=== PATIENT | female | born 1940 | race Caucasian/White ===

== ENCOUNTER → 2017-03-25 | Outpatient (CLI) | payer MEDICARE, OTHER ==
[2017-03-25 07:13] LABS: BASO # 0.1 K/mm3 (0.0-0.2); BASO % 1.1 % (0.0-1.0); EOS # 0.9 K/mm3 (0.0-0.50); EOS % 15.3 % (0.0-3.0); LARGE UNSTAINED CELL # 0.2 K/mm3 (0.0-0.4); LARGE UNSTAINED CELL % 4.3 % (0.0-4.0); LYMPH % 31.2 % (24.0-44.0); MEAN CORPUSCULAR HEMOGLOBIN 33.4 pg (27.0-33.0); MEAN CORPUSCULAR HGB CONC 33.8 g/dl (32.0-36.5); MEAN CORPUSCULAR VOLUME 98.7 fl (80.0-96.0); MONO # 0.5 K/mm3 (0.0-0.8); MONO % 8.1 % (0.0-5.0); NEUTROPHILS # 2.3 K/mm3 (1.8-7.7); PLATELET COUNT, AUTOMATED 238 k/mm3 (150-450); RED CELL DISTRIBUTION WIDTH 12.2 % (11.5-14.5); WHITE BLOOD COUNT 5.7 K/mm3 (4.0-10.0)
[2017-03-25 07:43] LABS: ALBUMIN 3.5 GM/DL (3.2-5.2); ALBUMIN/GLOBULIN RATIO 1.17 (1.00-1.93); ALKALINE PHOSPHATASE 62 U/L (45-117); ALT/SGPT 20 U/L (12-78); ANION GAP 8 MEQ/L (8-16); AST/SGOT 22 U/L (15-37); BILIRUBIN,TOTAL 0.4 MG/DL (0.2-1.0); BLOOD UREA NITROGEN 9 MG/DL (7-18); CALCIUM LEVEL 8.7 MG/DL (8.8-10.2); CARBON DIOXIDE LEVEL 31 MEQ/L (21-32); CHLORIDE LEVEL 97 MEQ/L (98-107); CHOLESTEROL LEVEL 195 MG/DL (<200); FREE T4 0.86 NG/DL (0.76-1.46); GLOMERULAR FILTRATION RATE > 60.0 (>39); GLUCOSE, FASTING 93 MG/DL (83-110); POTASSIUM SERUM 4.2 MEQ/L (3.5-5.1); SODIUM LEVEL 136 MEQ/L (136-145); TOTAL PROTEIN 6.5 GM/DL (6.4-8.2); TRIGLYCERIDES LEVEL 132 MG/DL (<150)
== END ==
LOC: M LAB 06:02
PROVIDERS: ATTEND Family Medicine
DX: E06.3 Autoimmune thyroiditis (principal); R03.0 Elevated blood-pressure reading, without diagnosis of hypertension

== ENCOUNTER → 2017-04-29 | Outpatient (CLI) | payer MEDICARE, OTHER ==
--- NOTE | 2017-04-29 11:05 | REPMRS ---
Patient History The patient states she has not had a clinical breast exam in over a year. No known family history of cancer. Took estrogen for 6 years. Digital Woman Screen Mammo: April 29, 2017 - Exam #: [id number] Bilateral CC and MLO view(s) were taken. Technologist: Kenya Orozco, Technologist Prior study comparison: January 24, 2015, bilateral digital mammo screening bilat, performed at [facility]. September 01, 2012, left breast digital mammo diagnostic unilateral, performed at [facility]. August 22, 2012, bilateral digital mammo screening bilat, performed at [facility]. FINDINGS: The breast tissue is extremely dense which could obscure a lesion on mammography. There is an extremely dense symmetrical pattern of residual fibroglandular tissue. There has been no change in the appearance of the mammogram from the previous studies. There is no interval development of dominant mass, archetectural distortion, or microcalcific cluster suggestive of malignancy. ASSESSMENT: BI-RADS/ACR category 2 mammogram. Benign finding(s). Recommendation Routine screening mammogram of both breasts in 1 year (for women over age 40). This mammogram was interpreted with the aid of an FDA-approved computer-aided dectection system. Electronically Signed By: Gregory Calzada MD 04/29/17 [id number]
--- NOTE | 2017-04-30 13:30 | DEXA ---
AP SPINE L1 - L4 0.820 -3.0 -1.3 LT FEMUR TOTAL 0.618 -3.1 -1.4 RT FEMUR TOTAL 0.594 -3.3 -1.6 TOTAL BODY TOTAL OTHER DUAL FEMUR FRAX* ASSESSMENT Risk factors: Mother's hip fracture, chronic glucocorticoids use. 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 The density of the spine has decreased 18.9% since the initial exam on 1998. The spine density has decreased 11.4% since the most recent exam on 02/11/2012. The density of the left hip has decreased 11.3% since the initial exam on 1998. The density of the left hip has decreased 8.0% since the most recent exam on . The density of the right hip has decreased 13.9% since the initial exam on 09/11. The density of the right hip has decreased 9.5% since the most recent exam on . FOLLOW-UP: Recommendation for the next bone density exam: 2 years. SHERRI
== END ==
LOC: M WHC 09:29
PROVIDERS: ATTEND Family Medicine
DX: Z12.31 Encounter for screening mammogram for malignant neoplasm of breast (principal); M94.9 Disorder of cartilage, unspecified; M89.9 Disorder of bone, unspecified
CPT/HCPCS: 77080; G0202

== ENCOUNTER → 2017-05-10 | Outpatient (CLI) | payer MEDICARE, OTHER ==
[2017-05-10 12:53] LABS: FREE T4 1.03 NG/DL (0.76-1.46)
== END ==
LOC: M LAB 11:35
PROVIDERS: ATTEND Family Medicine
DX: E06.3 Autoimmune thyroiditis (principal)

== ENCOUNTER → 2017-05-31 | Outpatient (CLI) | payer MEDICARE, OTHER ==
[~2017-05-31] MED LIST: ALBU83IN INH; BUDE2SUS3 IN; CALC600T31 PO; CLON0.5T PO; FLUO10CA8 PO; LEVO88TA3 PO; MONT10TA2 PO; OMEP40CA2 PO; PROAAER10 INH; RANI15TA PO; SPIR1CAP INH; VITA100067 PO; VITA500T3 PO
--- NOTE | 2017-05-31 13:30 | REP ---
Chest two views HISTORY: Corneal l dystrophy Comparison: 08/23/2014 The lungs are hyperinflated. The lungs are clear. The cardiac silhouette is enlarged. The pulmonary vasculature is normal in appearance. The bony structure is intact. IMPRESSION: Cardiomegaly Signed by Juan Diego Butcher MD 05/31/2017 01:22 P
[2017-05-31 14:15] LABS: ANION GAP 6 MEQ/L (8-16); BLOOD UREA NITROGEN 10 MG/DL (7-18); CALCIUM LEVEL 8.8 MG/DL (8.8-10.2); CARBON DIOXIDE LEVEL 32 MEQ/L (21-32); CHLORIDE LEVEL 92 MEQ/L (98-107); CREATININE FOR GFR 0.54 MG/DL (0.55-1.02); GLOMERULAR FILTRATION RATE > 60.0 (>39); GLUCOSE, FASTING 95 MG/DL (83-110); POTASSIUM SERUM 4.2 MEQ/L (3.5-5.1); SODIUM LEVEL 130 MEQ/L (136-145)
--- NOTE | 2017-05-31 15:05 | ECGEPIP ---
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 Electronically Signed On 05-31-2017 15:04:44 EDT by Kiko Goodson
== END ==
LOC: M LAB 12:46
PROVIDERS: ATTEND Ophthalmology
DX: H18.51 Endothelial corneal dystrophy (principal)

== ENCOUNTER → 2017-07-28 | Outpatient (CLI) | payer MEDICARE, OTHER ==
[2017-07-28 09:03] LABS: CALCIUM LEVEL 9.3 MG/DL (8.8-10.2)
== END ==
LOC: M LAB 08:16
PROVIDERS: ATTEND Internal Medicine Endocrinology, Diabetes & Metabolism
DX: M81.0 Age-related osteoporosis without current pathological fracture (principal)

== ENCOUNTER 2017-07-29 11:05 | Day surgery (SDC) | payer MEDICARE, OTHER ==
[~2017-07-29] VITALS: Ht 162.6 cm; Wt 45.4 kg
[~2017-07-29 11:05] MED LIST changes: +BALANCED SALT IRRIGATION SOLUTION 500ML BAG (FOR OR EYE MACHINE) As Ordered ONE; +BUPIVACAINE HCL 0.25% 30 ML VIAL As Ordered ONE; +HEALON DUET (HEALON 10MG/ML 0.55ML & HEALON ENDOCOAT 30MG/ML 0.85ML) As Ordered ONE; +LIDOCAINE 1% SDV 5 ML VIAL SQ ONE; +LIDOCAINE 2% MDV 20 ML VIAL As Ordered ONE; +LR 1,000 ML IV ONE; +MAXITROL OPHTH SUSP 5 ML As Ordered ONE; +OFLOXACIN 0.3 % (OCUFLOX) OPTH SOL 5ML OD ONE; +PHENYLEPHRINE 2.5% OPHTH SOL 2ML OD ONE; +POVIDONE-IODINE 5% OPHTH PREP SOL 30ML As Ordered ONE; +PROPARACAINE 0.5% OPHTH SOL 15ML OD ONE; +TROPICAMIDE 1% OPHTH SOLN 2ML OD ONE
[2017-07-29] MEDS ORDERED: DUOVISC (0.50ML VISCOAT/0.55ML PROVISC) OPHTH KIT As Ordered ONE (11:30)
[2017-07-29] MEDS ORDERED: ACETYLCHOLINE OPHTH SOLN 1% 2ML (MIOCHOL-E) As Ordered ONE (11:32)
[2017-07-29] MEDS ORDERED: OFLOXACIN 0.3 % (OCUFLOX) OPTH SOL 5ML As Ordered ONE (11:33)
[2017-07-29] MEDS ORDERED: TRYPAN BLUE 0.06 % 2.25 ML OPHTH SYR (VISIONBLUE) As Ordered ONE (11:41)
[2017-07-29] MEDS ORDERED: MIDAZOLAM INJ 2 MG/2 ML VIAL (J2250) As Ordered ONE (12:03)
[2017-07-29] MEDS ORDERED: fentaNYL 100 MCG/2 ML INJECTION (J3010) As Ordered ONE (12:03)
[2017-07-29] MEDS ORDERED: ONDANSETRON 4MG/2ML VIAL (J2405) As Ordered ONE (12:08)
[2017-07-29] MEDS ORDERED: ACETAMINOPHEN 325 MG TAB As Ordered ONE (15:18)
[2017-07-29 15:25] VITALS: BP 160/82
[2017-07-29] MEDS ORDERED: ACETAMINOPHEN TAB 650MG DOSE (2X325MG) PO PRN (15:30)
[2017-07-29] MEDS ORDERED: LR 1,000 ML IV SCH (15:30)
[2017-07-29] MEDS ORDERED: ONDANSETRON 4MG/2ML VIAL (J2405) IV PRN (15:30)
--- NOTE | 2017-07-30 12:46 | RO ---
DATE OF PROCEDURE: PREOPERATIVE DIAGNOSES: 1. Corneal edema, right eye. 2. Fuch's endothelial dystrophy, right eye. 3. Pseudophakia, right eye. POSTOPERATIVE DIAGNOSES: 1. Corneal edema, right eye. 2. Fuchs's endothelial dystrophy, right eye. 3. Pseudophakia, right eye. PROCEDURE: 1. Descemet membrane endothelial keratoplasty, right eye (patient 8.0 mm/donor 7.5 mm with the use of SF6 gas, 20% to the right eye). SURGEON: Abrahan Tam D.O. [employer]: ANESTHESIA: Local with monitored anesthesia care (MAC). COMPLICATIONS: None. POSTOPERATIVE CONDITION: Stable. INDICATION FOR SURGERY: Blurred vision, right eye affecting patient's activities of daily living. DESCRIPTION OF PROCEDURE: The patient was identified in the preoperative area and the consents were reviewed. The correct eye was identified and marked. Attention was turned to that eye. The patient received topical anesthetics in the preoperative area and the patient was transferred to the operating room. Prior to the patient being brought to the operating room, attention was turned to the donor cornea. The cornea was placed in a 7.5 mm Aguilar donor punch, and the "S" was visualized. Trypan blue was placed in the donor well and left for approximately 30 seconds then gently washed with balance salt solution (BSS). The donor punch was aligned so that the S was visualized within the area to be punched. A gentle punch was applied to the donor cornea just so that Descemet's membrane was penetrated and then the sharp punch was discarded. Using bent forceps, the endothelium was gently released from the stromal attachments until the tissue folded into a "double scroll". The double-scroll tissue was then placed in a well of trypan blue for approximately 3-4 minutes. The unused tissue was removed and sent to pathology and microbiology. At that time, the patient was reidentified and topical anesthetics were applied to the surface of the right eye. The eye was prepped and draped in a sterile fashion and the upper eyelids were isolated with Tegaderm tape and the upper and lower lids were held open with an adjustable speculum. An 8.0 mm trephine lala was placed on the corneal surface and using a marking pen, this ring was marked. An 0.6 mm blade was marked with ink and then two paracentesis incisions were made. One at approximately 4 o'clock and one at 8 o'clock. Intraocular Miochol was injected into the anterior chamber through a paracentesis wound showing a moderately small pupil. At that time, cohesive viscoelastic was placed in the eye. With a reverse Sinskey hook, the endothelium was detached following the 8.0 mm trephine lala placed on the corneal surface. A 2.4 mm sharp keratome was used to enter the anterior chamber via a temporal clear corneal incision, and then enlarged to 3.0mm. The detached endothelial tissue was removed from the eye using capsulorrhexis forceps. A Sinskey hook was used to confirm the opening of a preplaced laser peripheral iridectomy in the inferior iris and it was found to be open at that time. The trypan blue was placed in the anterior chamber to identify any further Descemet's host to Descemet's membrane and there were some and this was removed appropriately. Gentle irrigation and aspiration was performed removing all viscoelastic and attention was turned to the double scrolled endothelium. Trypan blue was gently diluted with Optisol solution that was covering the tissue, and then addition BSS was used to dilute the trypan blue solution over the double scrolled endothelium. The modified Santoro tube was assembled at the back table with a 3 mL syringe filled with BSS and a 1.4 cm 14 gauge nasogastric tube suction was cut to approximately 1.4 cm and assembled in a standard fashion. The modified Santoro tube was used to aspirate the double scrolled endothelium pulling the tissue into and then set aside. Attention was turned back to the patient. The chamber was shallowed. The tissue inside the modified Santoro tube was slowly injected into the anterior chamber, gentle pressure was applied to the incision upon withdrawal of the angiocatheter, and the incision was then closed with a single #10-0 nylon suture. Using two 27 gauge intraocular cannulas on 3 mL BSS syringes, the graft was gently tapped until the double scroll unfolded. Air and 1 mL SF6 was prepared at the back table for approximate concentration of 20% and then placed under the donor button to pus the button against the recipient corneal stroma, showing the "S" in proper position and orientation. Then SF6 gas (20%) was placed further through the paracentesis incision filling the anterior chamber and was left without manipulation for approximately 10 minutes. The intraocular pressure was normal to palpation after 10 minutes and a mild amount of SF6 gas was removed showing an SF6 bubble to approximately 75%. Paracentesis wound incisions were hydrated with BSS and tested for leaks and were found to be dry. ReSure sealant was then placed over the temporal incision as well as the inferior corneal incision and the eye was palpated and found to have a normal pressure with a moderate air bubble. Tissue was centrally placed and well positioned. The eyelid speculum was carefully removed and an eye shield was placed over the secured eye. The patient was discharged to the recovery room in a stable condition with instruction to lay supine for approximately one hour and then to be discharged home. SHERRI
== END 2017-07-29 16:10 | disposition home or self-care (01) ==
LOC: M SDC 11:05
PROVIDERS: ATTEND Ophthalmology
DX: H18.51 Endothelial corneal dystrophy (principal); H18.20 Unspecified corneal edema; Z96.1 Presence of intraocular lens; E03.9 Hypothyroidism, unspecified; K21.9 Gastro-esophageal reflux disease without esophagitis; M19.90 Unspecified osteoarthritis, unspecified site; M81.0 Age-related osteoporosis without current pathological fracture; F41.9 Anxiety disorder, unspecified; J44.9 Chronic obstructive pulmonary disease, unspecified; J45.909 Unspecified asthma, uncomplicated; I73.00 Raynaud's syndrome without gangrene; M35.00 Sjogren syndrome, unspecified; K22.70 Barrett's esophagus without dysplasia; Z88.6 Allergy status to analgesic agent; Z79.899 Other long term (current) drug therapy; Z87.891 Personal history of nicotine dependence
CPT/HCPCS: 65756; 65757; 66761; 67515; 87102; 88300; J2250; J2405; J3010

== ENCOUNTER → 2017-10-18 | Outpatient (REF) | payer MEDICARE, OTHER ==
[~2017-10-18] MED LIST changes: -BALANCED SALT IRRIGATION SOLUTION 500ML BAG (FOR OR EYE MACHINE) As Ordered ONE; -BUPIVACAINE HCL 0.25% 30 ML VIAL As Ordered ONE; -HEALON DUET (HEALON 10MG/ML 0.55ML & HEALON ENDOCOAT 30MG/ML 0.85ML) As Ordered ONE; -LIDOCAINE 1% SDV 5 ML VIAL SQ ONE; -LIDOCAINE 2% MDV 20 ML VIAL As Ordered ONE; -LR 1,000 ML IV ONE; -MAXITROL OPHTH SUSP 5 ML As Ordered ONE; -OFLOXACIN 0.3 % (OCUFLOX) OPTH SOL 5ML OD ONE; -PHENYLEPHRINE 2.5% OPHTH SOL 2ML OD ONE; -POVIDONE-IODINE 5% OPHTH PREP SOL 30ML As Ordered ONE; -PROPARACAINE 0.5% OPHTH SOL 15ML OD ONE; -TROPICAMIDE 1% OPHTH SOLN 2ML OD ONE
== END ==
LOC: M LAB REF 17:44
PROVIDERS: ATTEND Physician Assistant
DX: J44.1 Chronic obstructive pulmonary disease with (acute) exacerbation (principal)

== ENCOUNTER → 2017-10-18 | Outpatient (CLI) | payer MEDICARE, OTHER ==
--- NOTE | 2017-10-18 14:24 | REP ---
Chest two views HISTORY: COPD Comparison: 05/31/2017 The lungs are hyperinflated. The lungs are clear. The cardiac silhouette is enlarged. The pulmonary vasculature is normal in appearance. The bony structure is intact. IMPRESSION: Cardiomegaly. Signed by Juan Diego Butcher MD 10/18/2017 02:15 P
== END ==
LOC: M SMT 13:36
PROVIDERS: ATTEND Physician Assistant
DX: J44.1 Chronic obstructive pulmonary disease with (acute) exacerbation (principal); I51.7 Cardiomegaly

== ENCOUNTER 2018-04-14 10:12 | Day surgery (SDC) | payer MEDICARE, OTHER ==
[2018-04-14] MEDS: TRYPAN BLUE 0.06 % 2.25 ML OPHTH SYR (VISIONBLUE) As Ordered (06:42)
[2018-04-14] MEDS: OFLOXACIN 0.3 % (OCUFLOX) OPTH SOL 5ML As Ordered (06:43)
[2018-04-14] MEDS: LIDOCAINE 2% MDV 20 ML VIAL As Ordered (10:11)
[~2018-04-14 10:12] MED LIST changes: +ACETAMINOPHEN 325 MG TAB PO; -ALBU83IN INH; -BUDE2SUS3 IN; -CALC600T31 PO; -CLON0.5T PO; -FLUO10CA8 PO; -LEVO88TA3 PO; -MONT10TA2 PO; +OFLOXACIN 0.3 % (OCUFLOX) OPTH SOL 5ML OD; -OMEP40CA2 PO; -PROAAER10 INH; +PROPARACAINE 0.5% OPHTH SOL 15ML OD; -RANI15TA PO; -SPIR1CAP INH; -VITA100067 PO; -VITA500T3 PO
[2018-04-14] MEDS ORDERED: MIDAZOLAM INJ 2 MG/2 ML VIAL (J2250) As Ordered (11:04)
[2018-04-14] MEDS ORDERED: fentaNYL 100 MCG/2 ML INJECTION (J3010) As Ordered (11:04)
[2018-04-14] MEDS: PROPARACAINE 0.5% OPHTH SOL 15ML OD (11:18)
[2018-04-14] MEDS: OFLOXACIN 0.3 % (OCUFLOX) OPTH SOL 5ML OD (11:18)
[2018-04-14] MEDS: LIDOCAINE PRES-FREE 2% 10ML AMP As Ordered (11:45)
[2018-04-14] MEDS: BALANCED SALT IRRIGATION SOLUTION 500ML BAG (FOR OR EYE MACHINE) As Ordered (12:10)
[2018-04-14] MEDS: POVIDONE-IODINE 5% OPHTH PREP SOL 30ML As Ordered ×2 (12:10→13:37)
[2018-04-14] MEDS: DUOVISC (0.50ML VISCOAT/0.55ML PROVISC) OPHTH KIT As Ordered (12:10)
[2018-04-14] MEDS ORDERED: LABETALOL HCL 100 MG/20 ML VIAL As Ordered (12:14)
[2018-04-14] MEDS ORDERED: PROPOFOL 200 MG/20 ML VIAL As Ordered (12:36)
[2018-04-14] MEDS ORDERED: ePHEDrine SULFATE 25 MG/5 ML(5MG/ML) SYRINGE As Ordered (13:06)
[2018-04-14] MEDS ORDERED: ROCURONIUM BROMIDE 50 MG/5 ML VIAL As Ordered (13:06)
[2018-04-14] MEDS ORDERED: NEOSTIGMINE 10 MG/10 ML VIAL (J2710) As Ordered (13:14)
[2018-04-14] MEDS ORDERED: GLYCOPYRROLATE INJ 0.2 MG/ML 2 ML VIAL As Ordered (13:15)
[2018-04-14] MEDS ORDERED: ONDANSETRON 4MG/2ML VIAL (J2405) As Ordered ×2 (13:17→16:31)
[2018-04-14] MEDS ORDERED: PHENYLephrine HCL 500 MCG/5 ML (100MCG/ML) SYRINGE (J2370) As Ordered (13:23)
[2018-04-14] MEDS: TOBRADEX OPHTH OINT 3.5 GM As Ordered (13:37)
[2018-04-14] MEDS: ACETYLCHOLINE OPHTH SOLN 1% 2ML (MIOCHOL-E) As Ordered (13:38)
[2018-04-14] MEDS ORDERED: FLUMAZENIL 0.5 MG/5 ML VIAL As Ordered (14:14)
[2018-04-14] MEDS: FLUMAZENIL 0.5 MG/5 ML VIAL IV (14:22)
[2018-04-14] MEDS ORDERED: LEVALBUTEROL 1.25 MG/0.5 ML CONCENTRATE NEB As Ordered (14:23)
[2018-04-14] MEDS: LEVALBUTEROL 1.25 MG/0.5 ML CONCENTRATE NEB INH (14:35)
[2018-04-14] MEDS ORDERED: TRIMETHOBENZAMIDE 300 MG CAP PO (14:45)
[2018-04-14] MEDS ORDERED: ONDANSETRON 4MG/2ML VIAL (J2405) IV ×2 (15:00→18:00)
[2018-04-14] MEDS: ALBUTEROL 90 MCG/ACT 8GM HFA INHALER INH (16:05)
[2018-04-14] MEDS: ONDANSETRON 4MG/2ML VIAL (J2405) IV (16:45)
[2018-04-14] MEDS ORDERED: ALBUTEROL SULFATE 2.5 MG/0.5 ML INH NEB SOLN INH (18:00)
[2018-04-14] MEDS: NS 500 ML IV (18:13)
[2018-04-14] MEDS: ALBUTEROL SULFATE 2.5 MG/0.5 ML INH NEB SOLN INH (23:21)
[2018-04-15] MEDS: LEVOTHYROXINE 88MCG TABLET (0.088 MG) PO (06:28)
[2018-04-15] MEDS: TIOTROPIUM INHALER/CAPSULE (SPIRIVA) INH (07:55)
[2018-04-15] MEDS: ALBUTEROL SULFATE 2.5 MG/0.5 ML INH NEB SOLN INH ×4 (07:55→19:41)
[2018-04-15 08:27] LABS: HEMATOCRIT 37.9 % (36.0-47.0); HEMOGLOBIN 12.5 g/dl (12.0-15.5); MEAN CORPUSCULAR HEMOGLOBIN 33.1 pg (27.0-33.0); MEAN CORPUSCULAR VOLUME 100.3 fl (80.0-96.0); PLATELET COUNT, AUTOMATED 255 10^3/uL (150-450); RED BLOOD COUNT 3.78 10^6/uL (4.00-5.40); RED CELL DISTRIBUTION WIDTH 12.2 % (11.5-14.5); WHITE BLOOD COUNT 5.8 10^3/uL (4.0-10.0)
[2018-04-15] MEDS ORDERED: raNITIdine SYRUP 150 MG/10 ML UDC PO (09:00)
[2018-04-15] MEDS: predniSONE 5 MG TAB PO (09:03)
[2018-04-15] MEDS: PANTOPRAZOLE 40MG TAB (PROTONIX) PO (09:03)
[2018-04-15] MEDS: FEXOFENADINE 60 MG TAB PO (09:03)
[2018-04-15] MEDS: MONTELUKAST 10 MG TAB PO (09:04)
[2018-04-15] MEDS: FLUoxetine 10 MG CAP PO (09:04)
[2018-04-15 09:15] LABS: ANION GAP 6 MEQ/L (8-16); BLOOD UREA NITROGEN 14 MG/DL (7-18); CALCIUM LEVEL 8.4 MG/DL (8.8-10.2); CARBON DIOXIDE LEVEL 32 MEQ/L (21-32); CHLORIDE LEVEL 101 MEQ/L (98-107); CREATININE FOR GFR 0.63 MG/DL (0.55-1.30); GLOMERULAR FILTRATION RATE > 60.0 (>39); GLUCOSE, FASTING 76 MG/DL (70-100); SODIUM LEVEL 139 MEQ/L (136-145)
[2018-04-15] MEDS: OFLOXACIN 0.3 % (OCUFLOX) OPTH SOL 5ML OD ×3 (14:16→21:00)
[2018-04-15] MEDS: prednisoLONE ACET 1% OPHTH SUSP 5ML OD ×3 (15:30→21:00)
[2018-04-15] MEDS: BUDESONIDE 180MCG INHALER (PULMICORT FLEXHALER) INH (19:41)
[2018-04-15] MEDS: raNITIdine SYRUP 150 MG/10 ML UDC PO (21:00)
[2018-04-16] MEDS: LEVOTHYROXINE 88MCG TABLET (0.088 MG) PO (06:17)
[2018-04-16] MEDS: prednisoLONE ACET 1% OPHTH SUSP 5ML OD ×2 (06:17→09:00)
[2018-04-16] MEDS: ALBUTEROL SULFATE 2.5 MG/0.5 ML INH NEB SOLN INH (08:55)
[2018-04-16] MEDS: TIOTROPIUM INHALER/CAPSULE (SPIRIVA) INH (08:55)
== END 2018-04-16 10:47 | disposition home or self-care (01) ==
LOC: M SDC 10:12 → M PED 17:57
DX: T86.841 Corneal transplant failure (principal); K21.9 Gastro-esophageal reflux disease without esophagitis; I10 Essential (primary) hypertension; E03.9 Hypothyroidism, unspecified; J44.9 Chronic obstructive pulmonary disease, unspecified; H18.40 Unspecified corneal degeneration; F41.9 Anxiety disorder, unspecified; Z79.899 Other long term (current) drug therapy
CPT/HCPCS: 65756

== ENCOUNTER → 2018-08-29 | Outpatient (CLI) | payer MEDICARE, OTHER ==
[2018-08-29 14:11] LABS: CALCIUM LEVEL 8.6 MG/DL (8.8-10.2)
[2018-08-29 14:26] LABS: TOTAL 25(OH) VITAMIN D 66.5 NG/ML (30.0-100.0)
== END ==
LOC: M LAB 13:10
DX: M81.0 Age-related osteoporosis without current pathological fracture (principal); E55.9 Vitamin D deficiency, unspecified
CPT/HCPCS: 82310

== ENCOUNTER → 2018-09-28 | Outpatient (REF) | payer MEDICARE, OTHER ==
[2018-09-28 13:49] LABS: APPEARANCE, URINE HAZY (CLEAR); BACTERIA, URINE AUTO 3+ (NEGATIVE); BILIRUBIN, URINE AUTO NEGATIVE (NEGATIVE); BLOOD, URINE BLOOD NEGATIVE (NEGATIVE); COLOR, URINE YELLOW (YELLOW); GLUCOSE, URINE (UA) AUTO NEGATIVE (NEGATIVE); KETONE, URINE AUTO NEGATIVE (NEGATIVE); LEUKOCYTE ESTERASE, URINE AUTO 3+ (NEGATIVE); NITRITE, URINE AUTO POSITIVE (NEGATIVE); PROTEIN, URINE AUTO NEGATIVE (NEGATIVE); RBC, URINE AUTO 3 /HPF (0-3); SPECIFIC GRAVITY URINE AUTO 1.009 (1.002-1.035); SQUAMOUS EPITHELIAL CELL UR AU 0 /HPF (0-6); UROBILINOGEN, URINE AUTO 0.2 mg/dL (0.0-2.0); WBC, URINE AUTO 100 /HPF (0-3)
== END ==
LOC: M LAB REF 13:31
DX: N32.81 Overactive bladder (principal); Z79.899 Other long term (current) drug therapy
CPT/HCPCS: 81001

== ENCOUNTER → 2018-11-02 | Outpatient (REF) | payer MEDICARE, OTHER | LOC: M LAB REF 13:12 | DX: R30.0 Dysuria (principal) | CPT/HCPCS: 87086 ==

== ENCOUNTER → 2019-03-04 | Outpatient (CLI) | payer MEDICARE, OTHER ==
[~2019-03-04] MED LIST changes: -ACETAMINOPHEN 325 MG TAB PO; +ALBU83IN INH; +ALLE180T33 PO; +BUDE2SUS3 INH; +CALC600T31 PO; +CLON0.5T8 PO; +FLUO10CA8 PO; +LEVO88TA3 PO; +MONT10TA2 PO; -OFLOXACIN 0.3 % (OCUFLOX) OPTH SOL 5ML OD; +OMEP40CA2 PO; +PRED1SUS2 OD; +PROAAER10 INH; -PROPARACAINE 0.5% OPHTH SOL 15ML OD; +RANI15TA PO; +SPIR1CAP INH; +VITA100067 PO; +VITA500T3 PO
== END ==
LOC: M LAB 08:22
PROVIDERS: ATTEND Internal Medicine Endocrinology, Diabetes & Metabolism
DX: M81.0 Age-related osteoporosis without current pathological fracture (principal)

== ENCOUNTER 2019-05-23 18:23 | Emergency (ER) | payer MEDICARE, OTHER ==
[~2019-05-23] VITALS: Ht 162.6 cm; Wt 44.1 kg
[~2019-05-23 18:23] MED LIST changes: +CYAN500T8 PO; -VITA500T3 PO
[2019-05-23] MEDS ORDERED: AMLO2.5T3 PO (18:30)
[2019-05-23] MEDS ORDERED: ASPI81TA85 PO (18:30)
[2019-05-23] MEDS ORDERED: ADACEL/BOOSTRIX VACCINE (DIPHTH/PERTUSS/ACELL/TETANUS)0.5ML SYR (90715) IM ONE (20:30)
[2019-05-23 21:03] VITALS: BP 127/83
== END 2019-05-23 21:04 | disposition home or self-care (01) ==
LOC: M ED 20:40
DX: S61.303A Unspecified open wound of left middle finger with damage to nail, initial encounter (principal); W26.8XXA Contact with other sharp object(s), not elsewhere classified, initial encounter; Y92.018 Other place in single-family (private) house as the place of occurrence of the external cause; I10 Essential (primary) hypertension; J45.909 Unspecified asthma, uncomplicated; K21.9 Gastro-esophageal reflux disease without esophagitis; M81.0 Age-related osteoporosis without current pathological fracture; F41.9 Anxiety disorder, unspecified; Z79.899 Other long term (current) drug therapy; Z79.890 Hormone replacement therapy; Z79.82 Long term (current) use of aspirin; Z88.5 Allergy status to narcotic agent; Z88.8 Allergy status to other drugs, medicaments and biological substances

== ENCOUNTER → 2019-09-02 | Outpatient (CLI) | payer MEDICARE, OTHER ==
[~2019-09-02] MED LIST changes: +AMLO2.5T3 PO; +ASPI81TA85 PO; -OMEP40CA2 PO; +OMEP40CA97 PO
[2019-09-02 11:53] LABS: CALCIUM LEVEL 8.8 MG/DL (8.8-10.2)
[2019-09-04 10:40] LABS: TOTAL 25(OH) VITAMIN D 54.5 NG/ML (30.0-100.0)
== END ==
LOC: M LAB 11:12
PROVIDERS: ATTEND Internal Medicine Endocrinology, Diabetes & Metabolism
DX: M81.0 Age-related osteoporosis without current pathological fracture (principal); E55.9 Vitamin D deficiency, unspecified

== ENCOUNTER → 2019-10-23 | Outpatient (CLI) | payer MEDICARE, OTHER ==
[~2019-10-23] MED LIST changes: +CLON0.5T2 PO; -CLON0.5T8 PO
--- NOTE | 2019-10-26 10:21 | DEXA ---
AP SPINE L1 - L4 0.944 -2.0 -0.2 LT FEMUR TOTAL 0.639 -2.9 -1.0 LT NECK 0.613 -3.1 -1.0 RT FEMUR TOTAL 0.636 -3.0 -1.1 RT NECK 0.598 -3.2 -1.1 TOTAL BODY TOTAL OTHER COMMENTS: There is low bone density of the spine. There is osteoporosis of the hips. The increased density of the spine does represent a significant change. The increased density of the left hip does represent a significant change. The increased density of the right hip does represent a significant change. The density of the spine has decreased 6.6% since the initial exam on 09/11/1999. The spine density has increased 15.1% since the most recent exam on 04/29/2017. The density of the left hip has decreased 8.3% since the initial exam on 09/11/1999. The density of the left hip has increased 3.4% since the most recent exam on 04/29/2017. The density of the right hip has decreased 7.8% since the initial exam on 07/20/2005. The density of the right hip has increased 7.1% since the most recent exam on 04/29/2017. FOLLOW-UP: Recommendation for the next bone density exam: 2 years. SHERRI
== END ==
LOC: M WHC 09:23
PROVIDERS: ATTEND Internal Medicine Endocrinology, Diabetes & Metabolism
DX: M85.88 Other specified disorders of bone density and structure, other site (principal); M85.851 Other specified disorders of bone density and structure, right thigh; M85.852 Other specified disorders of bone density and structure, left thigh

== ENCOUNTER → 2020-08-26 | Outpatient (CLI) | payer MEDICARE, OTHER ==
[~2020-08-26] MED LIST changes: -ASPI81TA85 PO; +ASPI81TA86 PO; +FLUO10CA16 PO; -FLUO10CA8 PO; -MONT10TA2 PO; +MONT10TA4 PO
[2020-08-26 06:42] LABS: BASO % 0.4 % (0.0-1.0); EOS % 0.6 % (0.0-3.0); HEMATOCRIT 33.9 % (36.0-47.0); LYMPH # 2.3 10^3/uL (1.5-5.0); LYMPH % 31.4 % (24.0-44.0); MEAN CORPUSCULAR HEMOGLOBIN 31.7 pg (27.0-33.0); MEAN CORPUSCULAR HGB CONC 32.4 g/dl (32.0-36.5); MEAN CORPUSCULAR VOLUME 97.7 fl (80.0-96.0); MONO # 0.9 10^3/uL (0.0-0.8); MONO % 12.5 % (0.0-5.0); PLATELET COUNT, AUTOMATED 254 10^3/uL (150-450); RED BLOOD COUNT 3.47 10^6/uL (4.00-5.40); WHITE BLOOD COUNT 7.2 10^3/uL (4.0-10.0)
[2020-08-26 07:17] LABS: ALBUMIN 3.6 GM/DL (3.2-5.2); ALT/SGPT 19 U/L (12-78); BILIRUBIN,TOTAL 0.3 MG/DL (0.2-1.0); BLOOD UREA NITROGEN 13 MG/DL (7-18); CALCIUM LEVEL 9.1 MG/DL (8.8-10.2); CARBON DIOXIDE LEVEL 32 MEQ/L (21-32); CHLORIDE LEVEL 98 MEQ/L (98-107); CHOLESTEROL LEVEL 203 MG/DL (<200); CREATININE FOR GFR 0.58 MG/DL (0.55-1.30); FREE T4 1.05 NG/DL (0.76-1.46); GLOMERULAR FILTRATION RATE > 60.0 (>39); GLUCOSE, FASTING 87 MG/DL (70-100); HDL CHOLESTEROL 118 MG/DL (>40); LDL CHOLESTEROL 77 MG/DL (<100); NON-HDL-C 85 MG/DL; POTASSIUM SERUM 4.1 MEQ/L (3.5-5.1); SODIUM LEVEL 134 MEQ/L (136-145); THYROID STIMULATING HORMONE 0.233 uIU/ML (0.358-3.740); TOTAL PROTEIN 6.7 GM/DL (6.4-8.2); TRIGLYCERIDES LEVEL 40 MG/DL (<150)
== END ==
LOC: M LAB 06:04
PROVIDERS: ATTEND Nurse Practitioner Family
DX: Z00.00 Encounter for general adult medical examination without abnormal findings (principal); Z79.899 Other long term (current) drug therapy

== ENCOUNTER → 2021-05-24 | Outpatient (CLI) | payer MEDICARE, OTHER ==
[~2021-05-24] MED LIST changes: +CYAN500T14 PO; -CYAN500T8 PO; +MONT10TA10 PO; -MONT10TA4 PO; +OMEP40CA4 PO; -OMEP40CA97 PO
[2021-05-24 10:10] LABS: BLOOD UREA NITROGEN 11 MG/DL (7-18); CALCIUM LEVEL 9.2 MG/DL (8.8-10.2); CARBON DIOXIDE LEVEL 31 MEQ/L (21-32); CHLORIDE LEVEL 98 MEQ/L (98-107); CREATININE FOR GFR 0.59 MG/DL (0.55-1.30); FREE T4 1.05 NG/DL (0.76-1.46); GLOMERULAR FILTRATION RATE > 60.0 (>39); GLUCOSE, FASTING 78 MG/DL (70-100); SODIUM LEVEL 134 MEQ/L (136-145); THYROID STIMULATING HORMONE 0.792 uIU/ML (0.358-3.740)
== END ==
LOC: M LAB 08:51
PROVIDERS: ATTEND Nurse Practitioner Family
DX: E03.9 Hypothyroidism, unspecified (principal)

== ENCOUNTER → 2021-11-13 | Outpatient (CLI) | payer MEDICARE, OTHER ==
[2021-11-13 07:43] LABS: ALBUMIN 3.7 GM/DL (3.2-5.2); ALT/SGPT 22 U/L (12-78); BILIRUBIN,TOTAL 0.3 MG/DL (0.2-1.0); BLOOD UREA NITROGEN 17 MG/DL (7-18); CARBON DIOXIDE LEVEL 33 MEQ/L (21-32); CHLORIDE LEVEL 97 MEQ/L (98-107); CHOLESTEROL LEVEL 182 MG/DL (<200); CHOLESTEROL RISK RATIO 1.654 (<5); CREATININE FOR GFR 0.53 MG/DL (0.55-1.30); FREE T4 1.17 NG/DL (0.76-1.46); GLOMERULAR FILTRATION RATE > 60.0 (>39); GLUCOSE, FASTING 94 MG/DL (70-100); HDL CHOLESTEROL 110 MG/DL (>40); LDL CHOLESTEROL 65 MG/DL (<100); NON-HDL-C 72 MG/DL; POTASSIUM SERUM 4.6 MEQ/L (3.5-5.1); SODIUM LEVEL 132 MEQ/L (136-145); THYROID STIMULATING HORMONE 0.222 uIU/ML (0.358-3.740); TRIGLYCERIDES LEVEL 37 MG/DL (<150)
== END ==
LOC: M LAB 06:13
PROVIDERS: ATTEND Nurse Practitioner Family
DX: E03.9 Hypothyroidism, unspecified (principal)

== ENCOUNTER → 2022-01-19 | Outpatient (CLI) | payer MEDICARE, OTHER ==
[~2022-01-19] MED LIST changes: -FLUO10CA16 PO; +FLUO10CA18 PO; -MONT10TA10 PO; +MONT10TA97 PO
[2022-01-19 11:22] LABS: FREE T4 0.82 NG/DL (0.76-1.46); THYROID STIMULATING HORMONE 4.6 uIU/ML (0.358-3.740)
== END ==
LOC: M LAB 09:41
PROVIDERS: ATTEND Family Medicine
DX: E03.9 Hypothyroidism, unspecified (principal)

== ENCOUNTER → 2022-04-23 | Outpatient (REF) | payer MEDICARE, OTHER ==
[~2022-04-23] MED LIST changes: +ALBU2.5V10 INH; -ALBU83IN INH
== END ==
LOC: M LAB REF 17:24
PROVIDERS: ATTEND Physician Assistant
DX: J44.1 Chronic obstructive pulmonary disease with (acute) exacerbation (principal)

== ENCOUNTER → 2022-06-04 | Outpatient (CLI) | payer MEDICARE, OTHER | LOC: M SOG 07:59 | PROVIDERS: ATTEND Orthopaedic Surgery Hand Surgery | DX: M25.531 Pain in right wrist (principal) ==

== ENCOUNTER → 2022-09-28 | Outpatient (CLI) | payer MEDICARE, OTHER ==
[2022-09-28 07:16] LABS: BASO # 0.1 10^3/uL (0.0-0.2); BASO % 1.9 % (0.0-1.0); EOS # 1.2 10^3/uL (0.0-0.5); HEMATOCRIT 36.5 % (36.0-47.0); HEMOGLOBIN 11.9 g/dl (12.0-15.5); LYMPH # 1.4 10^3/uL (1.5-5.0); MEAN CORPUSCULAR HEMOGLOBIN 32.6 pg (27.0-33.0); MEAN CORPUSCULAR HGB CONC 32.6 g/dl (32.0-36.5); MONO # 0.5 10^3/uL (0.0-0.8); NEUTROPHILS # 1.7 10^3/uL (1.5-8.5); NEUTROPHILS % 34.2 % (36.0-66.0); PLATELET COUNT, AUTOMATED 267 10^3/uL (150-450); RED BLOOD COUNT 3.65 10^6/uL (4.00-5.40); WHITE BLOOD COUNT 4.8 10^3/uL (4.0-10.0)
[2022-09-28 08:15] LABS: ALBUMIN 3.4 GM/DL (3.2-5.2); ALT/SGPT 17 U/L (12-78); BILIRUBIN,TOTAL 0.3 MG/DL (0.2-1.0); BLOOD UREA NITROGEN 14 MG/DL (7-18); CARBON DIOXIDE LEVEL 33 MEQ/L (21-32); CHLORIDE LEVEL 96 MEQ/L (98-107); CREATININE FOR GFR 0.53 MG/DL (0.55-1.30); FREE T4 0.98 NG/DL (0.76-1.46); GLOMERULAR FILTRATION RATE > 60.0 (>32); GLUCOSE, FASTING 93 MG/DL (70-100); POTASSIUM SERUM 4.1 MEQ/L (3.5-5.1); SODIUM LEVEL 134 MEQ/L (136-145); TOTAL PROTEIN 6.6 GM/DL (6.4-8.2)
[2022-09-28 08:41] LABS: EOS % 24.9 % (0.0-3.0)
== END ==
LOC: M LAB 06:06
PROVIDERS: ATTEND Nurse Practitioner Family
DX: E03.9 Hypothyroidism, unspecified (principal)

== ENCOUNTER → 2023-08-28 | Outpatient (CLI) | payer MEDICARE, OTHER ==
[2023-08-28 09:16] LABS: FREE T4 1.08 NG/DL (0.89-1.76); THYROID STIMULATING HORMONE 2.667 uIU/ML (0.55-4.78)
== END ==
LOC: M LAB 08:13
PROVIDERS: ATTEND Nurse Practitioner Family
DX: E03.9 Hypothyroidism, unspecified (principal)

== ENCOUNTER → 2023-10-03 | Outpatient (REF) | payer MEDICARE, OTHER | LOC: M LAB REF 18:21 | PROVIDERS: ATTEND Physician Assistant Medical | DX: B34.9 Viral infection, unspecified (principal) ==

== ENCOUNTER → 2023-12-23 | Outpatient (CLI) | payer MEDICARE, OTHER ==
[2023-12-23 08:20] LABS: FREE T4 1.05 NG/DL (0.89-1.76); THYROID STIMULATING HORMONE 3.232 uIU/ML (0.55-4.78)
== END ==
LOC: M LAB 06:29
PROVIDERS: ATTEND Nurse Practitioner Family
DX: E03.9 Hypothyroidism, unspecified (principal)

== ENCOUNTER → 2024-02-02 | Outpatient (CLI) | payer MEDICARE, OTHER ==
[2024-02-02 15:03] LABS: BASO # 0.1 10^3/uL (0.0-0.2); BASO % 1.6 % (0.0-1.0); EOS # 0.8 10^3/uL (0.0-0.5); EOS % 17.7 % (0.0-3.0); HEMATOCRIT 37.2 % (36.0-47.0); HEMOGLOBIN 12.4 g/dl (12.0-15.5); LYMPH # 1.3 10^3/uL (1.5-5.0); LYMPH % 31.2 % (24.0-44.0); MEAN CORPUSCULAR HEMOGLOBIN 32.5 pg (27.0-33.0); MEAN CORPUSCULAR HGB CONC 33.3 g/dl (32.0-36.5); MEAN CORPUSCULAR VOLUME 97.6 fl (80.0-96.0); MONO # 0.6 10^3/uL (0.0-0.8); MONO % 13.3 % (2.0-8.0); NEUTROPHILS # 1.6 10^3/uL (1.5-8.5); PLATELET COUNT, AUTOMATED 233 10^3/uL (150-450); RED BLOOD COUNT 3.81 10^6/uL (4.00-5.40); WHITE BLOOD COUNT 4.3 10^3/uL (4.0-10.0)
[2024-02-02 15:31] LABS: ALBUMIN 3.6 G/DL (3.2-5.2); ALKALINE PHOSPHATASE 87 U/L (46-116); ALT/SGPT 20 U/L (7.0-40); AST/SGOT 25 U/L (<34); BILIRUBIN,TOTAL 0.7 MG/DL (0.3-1.2); BLOOD UREA NITROGEN 13 MG/DL (9-23); CALCIUM LEVEL 8.6 MG/DL (8.3-10.6); CARBON DIOXIDE LEVEL 33 MMOL/L (20-31); CHLORIDE LEVEL 92 MMOL/L (98-107); GLOMERULAR FILTRATION RATE > 60.0 (>32); GLUCOSE, FASTING 87 MG/DL (74-106); POTASSIUM SERUM 4.3 MMOL/L (3.5-5.1); SODIUM LEVEL 128 MMOL/L (136-145); TOTAL PROTEIN 6.3 G/DL (5.7-8.2)
[2024-02-02 15:33] LABS: THYROID STIMULATING HORMONE 3.078 uIU/ML (0.55-4.78)
== END ==
LOC: M PLALAB 09:00
PROVIDERS: ATTEND Nurse Practitioner Family
DX: I50.9 Heart failure, unspecified (principal)

== ENCOUNTER → 2024-03-01 | Outpatient (CLI) | payer MEDICARE, OTHER ==
[2024-03-01 07:04] LABS: BLOOD UREA NITROGEN 15 MG/DL (9-23); CALCIUM LEVEL 9.1 MG/DL (8.3-10.6); CARBON DIOXIDE LEVEL 35 MMOL/L (20-31); CHLORIDE LEVEL 95 MMOL/L (98-107); CREATININE FOR GFR 0.49 MG/DL (0.55-1.30); GLOMERULAR FILTRATION RATE > 60.0 (>32); GLUCOSE, FASTING 68 MG/DL (74-106); POTASSIUM SERUM 4.5 MMOL/L (3.5-5.1); SODIUM LEVEL 132 MMOL/L (136-145)
== END ==
LOC: M LAB 06:11
PROVIDERS: ATTEND Nurse Practitioner Family
DX: I10 Essential (primary) hypertension (principal)

== ENCOUNTER → 2024-04-03 | Outpatient (CLI) | payer MEDICARE, OTHER ==
[~2024-04-03] MED LIST changes: +FLUO-290 PO; -FLUO10CA18 PO
[2024-04-03 07:18] LABS: BLOOD UREA NITROGEN 17 MG/DL (9-23); CALCIUM LEVEL 8.8 MG/DL (8.3-10.6); CARBON DIOXIDE LEVEL 33 MMOL/L (20-31); CHLORIDE LEVEL 95 MMOL/L (98-107); CREATININE FOR GFR 0.45 MG/DL (0.55-1.30); GLOMERULAR FILTRATION RATE > 60.0 (>32); GLUCOSE, FASTING 93 MG/DL (74-106); POTASSIUM SERUM 4.5 MMOL/L (3.5-5.1); SODIUM LEVEL 132 MMOL/L (136-145)
== END ==
LOC: M LAB 06:10
PROVIDERS: ATTEND Nurse Practitioner Family
DX: E87.1 Hypo-osmolality and hyponatremia (principal)

== ENCOUNTER → 2025-01-11 | Outpatient (CLI) | payer MEDICARE, OTHER ==
[2025-01-11 06:48] LABS: BASO # 0.1 10^3/uL (0.0-0.2); BASO % 1.1 % (0.0-1.0); EOS # 0.6 10^3/uL (0.0-0.5); EOS % 13.9 % (0.0-3.0); HEMATOCRIT 38.7 % (36.0-47.0); HEMOGLOBIN 13.3 g/dl (12.0-15.5); LYMPH # 1.3 10^3/uL (1.5-5.0); MEAN CORPUSCULAR HEMOGLOBIN 32.8 pg (27.0-33.0); MEAN CORPUSCULAR HGB CONC 34.4 g/dl (32.0-36.5); MEAN CORPUSCULAR VOLUME 95.3 fl (80.0-96.0); MONO # 0.6 10^3/uL (0.0-0.8); MONO % 13.4 % (2.0-8.0); NEUTROPHILS % 43.4 % (36.0-66.0); PLATELET COUNT, AUTOMATED 277 10^3/uL (150-450); RED BLOOD COUNT 4.06 10^6/uL (4.00-5.40); WHITE BLOOD COUNT 4.5 10^3/uL (4.0-10.0)
[2025-01-11 07:18] LABS: IRON (FE) 73 UG/DL (50-170); PERCENT SATURATION 18.1 % (13.2-45.0); TOTAL IRON BINDING CAPACITY 404 UG/DL (250-425)
[2025-01-11 07:19] LABS: FERRITIN 17.6 NG/ML (7.3-270.7)
[2025-01-11 07:20] LABS: FREE T4 1.24 NG/DL (0.89-1.76); THYROID STIMULATING HORMONE 8.809 uIU/ML (0.55-4.78); VITAMIN B12 LEVEL 1035 PG/ML (211-911)
[2025-01-11 07:21] LABS: FOLATE 22.7 NG/ML (>5.4)
[2025-01-11 07:22] LABS: ALBUMIN 3.7 G/DL (3.2-5.2); ALKALINE PHOSPHATASE 86 U/L (35-104); ALT/SGPT 18 U/L (7.0-40); AST/SGOT 25 U/L (<34); BILIRUBIN,TOTAL 0.6 MG/DL (0.3-1.2); BLOOD UREA NITROGEN 10 MG/DL (9-23); CARBON DIOXIDE LEVEL 33 MMOL/L (20-31); CHLORIDE LEVEL 90 MMOL/L (98-107); CREATININE FOR GFR 0.48 MG/DL (0.55-1.30); GLOMERULAR FILTRATION RATE > 60.0 (>32); GLUCOSE, FASTING 97 MG/DL (74-106); MAGNESIUM LEVEL 1.9 MG/DL (1.8-2.4); POTASSIUM SERUM 4.3 MMOL/L (3.5-5.1); SODIUM LEVEL 128 MMOL/L (136-145); TOTAL PROTEIN 6.8 G/DL (5.7-8.2)
== END ==
LOC: M LAB 06:10
PROVIDERS: ATTEND Nurse Practitioner Family
DX: I10 Essential (primary) hypertension (principal); E03.9 Hypothyroidism, unspecified; R20.2 Paresthesia of skin; D50.9 Iron deficiency anemia, unspecified

== ENCOUNTER → 2025-01-17 | Outpatient (REF) | payer MEDICARE, OTHER | LOC: M LAB REF 10:08 | PROVIDERS: ATTEND Physician Assistant | DX: J44.1 Chronic obstructive pulmonary disease with (acute) exacerbation (principal); J47.9 Bronchiectasis, uncomplicated ==

== ENCOUNTER → 2025-01-22 | Outpatient (CLI) | payer MEDICARE, OTHER ==
[~2025-01-22] MED LIST changes: +ISOVUE-370 76% 100ML VIAL As Ordered ONE
== END ==
LOC: M RAD 10:44
PROVIDERS: ATTEND Physician Assistant
DX: R09.02 Hypoxemia (principal); J44.9 Chronic obstructive pulmonary disease, unspecified; R06.00 Dyspnea, unspecified

== ENCOUNTER → 2025-02-21 | Outpatient (CLI) | payer MEDICARE, OTHER ==
[~2025-02-21] MED LIST changes: -ISOVUE-370 76% 100ML VIAL As Ordered ONE
== END ==
LOC: M RAD 09:01
PROVIDERS: ATTEND Physician Assistant
DX: R91.8 Other nonspecific abnormal finding of lung field (principal)

== ENCOUNTER → 2025-02-26 | Outpatient (CLI) | payer MEDICARE, OTHER ==
[2025-02-26 07:45] LABS: BLOOD UREA NITROGEN 15 MG/DL (9-23); CALCIUM LEVEL 8.8 MG/DL (8.3-10.6); CARBON DIOXIDE LEVEL 32 MMOL/L (20-31); CHLORIDE LEVEL 91 MMOL/L (98-107); CREATININE FOR GFR 0.46 MG/DL (0.55-1.30); GLOMERULAR FILTRATION RATE > 60.0 (>32); GLUCOSE, FASTING 86 MG/DL (74-106); POTASSIUM SERUM 4.5 MMOL/L (3.5-5.1); SODIUM LEVEL 130 MMOL/L (136-145)
[2025-02-26 07:47] LABS: THYROID STIMULATING HORMONE 4.271 uIU/ML (0.55-4.78)
[2025-02-26 07:48] LABS: FREE T4 1.17 NG/DL (0.89-1.76)
== END ==
LOC: M LAB 06:35
PROVIDERS: ATTEND Nurse Practitioner Family
DX: E87.1 Hypo-osmolality and hyponatremia (principal); E03.9 Hypothyroidism, unspecified

== ENCOUNTER → 2025-07-19 | Outpatient (CLI) | payer MEDICARE, OTHER ==
[2025-07-19 06:51] LABS: BASO # 0.1 10^3/uL (0.0-0.2); BASO % 1.3 % (0.0-1.0); EOS # 1.2 10^3/uL (0.0-0.5); EOS % 17.4 % (0.0-3.0); LYMPH # 1.3 10^3/uL (1.5-5.0); LYMPH % 19.1 % (24.0-44.0); MONO # 0.7 10^3/uL (0.0-0.8); MONO % 9.7 % (2.0-8.0); NEUTROPHILS # 3.6 10^3/uL (1.5-8.5); NEUTROPHILS % 52.4 % (36.0-66.0); PLATELET COUNT, AUTOMATED 234 10^3/uL (150-450)
[2025-07-19 07:21] LABS: ALT/SGPT 25 U/L (7.0-40); AST/SGOT 33 U/L (<34); CALCIUM LEVEL 9.4 MG/DL (8.3-10.6); CARBON DIOXIDE LEVEL 34 MMOL/L (20-31); CHLORIDE LEVEL 87 MMOL/L (98-107); CREATININE FOR GFR 0.44 MG/DL (0.55-1.30); GLOMERULAR FILTRATION RATE > 90.0 (>32); POTASSIUM SERUM 4.7 MMOL/L (3.5-5.1); SODIUM LEVEL 127 MMOL/L (136-145)
[2025-07-19 07:22] LABS: FREE T4 1.16 NG/DL (0.89-1.76)
== END ==
LOC: M LAB 06:22
PROVIDERS: ATTEND Nurse Practitioner Family
DX: I10 Essential (primary) hypertension (principal); E10.39 Type 1 diabetes mellitus with other diabetic ophthalmic complication

== ENCOUNTER 2025-09-27 15:21 | Emergency (ER) | payer MEDICARE, OTHER ==
[~2025-09-27] VITALS: Ht 165.1 cm; Wt 46.5 kg
[2025-09-27 15:24] VITALS: BP 171/77; TEMP 96.7; O2SAT 99
[2025-09-27] MEDS ORDERED: SILV1CRE60 TOP (17:00)
== END 2025-09-27 17:44 | disposition home or self-care (01) ==
LOC: M ED 15:21
DX: S81.801A Unspecified open wound, right lower leg, initial encounter (principal); Y92.9 Unspecified place or not applicable; Y93.9 Activity, unspecified; Y99.9 Unspecified external cause status; I10 Essential (primary) hypertension; F41.9 Anxiety disorder, unspecified; Z88.5 Allergy status to narcotic agent; Z88.6 Allergy status to analgesic agent; Z88.8 Allergy status to other drugs, medicaments and biological substances; Z79.51 Long term (current) use of inhaled steroids; Z79.1 Long term (current) use of non-steroidal anti-inflammatories (NSAID); Z79.899 Other long term (current) drug therapy

== ENCOUNTER 2025-10-12 10:29 | Emergency (ER) | payer MEDICARE, OTHER ==
[~2025-10-12] VITALS: Ht 165.1 cm; Wt 45.6 kg
[~2025-10-12 10:29] MED LIST changes: +SILV1CRE60 TOP
[2025-10-12 11:42] LABS: BASO # 0.0 10^3/uL (0.0-0.2); BASO % 0.9 % (0.0-1.0); EOS # 0.2 10^3/uL (0.0-0.5); EOS % 4.2 % (0.0-3.0); LYMPH # 1.3 10^3/uL (1.5-5.0); LYMPH % 27.8 % (24.0-44.0); MONO # 0.6 10^3/uL (0.0-0.8); MONO % 12.4 % (2.0-8.0); NEUTROPHILS # 2.5 10^3/uL (1.5-8.5); NEUTROPHILS % 54.5 % (36.0-66.0); PLATELET COUNT, AUTOMATED 242 10^3/uL (150-450)
[2025-10-12 12:09] LABS: C REACTIVE PROTEIN QUANTITATIV < 0.50 MG/DL (<1.0); CALCIUM LEVEL 8.9 MG/DL (8.3-10.6); CARBON DIOXIDE LEVEL 31 MMOL/L (20-31); CHLORIDE LEVEL 90 MMOL/L (98-107); CREATININE FOR GFR 0.47 MG/DL (0.55-1.30); GLOMERULAR FILTRATION RATE > 90.0 (>32); POTASSIUM SERUM 4.2 MMOL/L (3.5-5.1); SODIUM LEVEL 130 MMOL/L (136-145)
[2025-10-12] MEDS ORDERED: BACI500O8 TOP (14:13)
[2025-10-12] MEDS ORDERED: CEPH500C PO (14:14)
[2025-10-12 14:47] VITALS: BP 133/85; TEMP 98.3; O2SAT 94
[2025-10-17] MEDS ORDERED: CEFD1CAP9 PO (08:17)
[2025-11-29] MEDS ORDERED: BENZ200C70 PO (22:14)
[2025-11-29] MEDS ORDERED: PRED20TA PO (22:14)
== END 2025-10-12 14:52 | disposition home or self-care (01) ==
LOC: M ED 10:29
DX: L97.319 Non-pressure chronic ulcer of right ankle with unspecified severity (principal); J45.909 Unspecified asthma, uncomplicated; E03.9 Hypothyroidism, unspecified; F41.9 Anxiety disorder, unspecified; Z87.891 Personal history of nicotine dependence; Z88.5 Allergy status to narcotic agent; Z88.6 Allergy status to analgesic agent; Z88.8 Allergy status to other drugs, medicaments and biological substances; Z79.51 Long term (current) use of inhaled steroids; Z79.1 Long term (current) use of non-steroidal anti-inflammatories (NSAID); Z79.2 Long term (current) use of antibiotics; Z79.899 Other long term (current) drug therapy; Z79.52 Long term (current) use of systemic steroids; R09.89 Other specified symptoms and signs involving the circulatory and respiratory systems

== ENCOUNTER 2025-11-15 22:33 | Emergency (ER) | payer MEDICARE, OTHER ==
[~2025-11-15] VITALS: Ht 162.6 cm; Wt 46.7 kg
[~2025-11-15 22:33] MED LIST changes: +BACI500O8 TOP; +CEFD1CAP9 PO; +CEPH500C PO
[2025-11-15 22:39] VITALS: TEMP 97.6
[2025-11-16 00:17] LABS: CK-MB VALUE MASS 4.0 NG/ML (<3.6)
[2025-11-16 00:18] LABS: CALCIUM LEVEL 9.3 MG/DL (8.3-10.6); CARBON DIOXIDE LEVEL 32 MMOL/L (20-31); CHLORIDE LEVEL 98 MMOL/L (98-107); CPK CREATINE PHOSPHOKINASE 58 U/L (34-145); CREATININE FOR GFR 0.49 MG/DL (0.55-1.30); GLOMERULAR FILTRATION RATE > 90.0 (>32); MAGNESIUM LEVEL 1.8 MG/DL (1.8-2.4); MB/CK RELATIVE INDEX 6.89 (< OR =4); POTASSIUM SERUM 4.1 MMOL/L (3.5-5.1); SODIUM LEVEL 138 MMOL/L (136-145)
[2025-11-16 00:29] LABS: BASO # 0.1 10^3/uL (0.0-0.2); BASO % 1.6 % (0.0-1.0); EOS # 0.6 10^3/uL (0.0-0.5); EOS % 10.7 % (0.0-3.0); LYMPH # 1.7 10^3/uL (1.5-5.0); LYMPH % 31.1 % (24.0-44.0); MONO # 0.8 10^3/uL (0.0-0.8); MONO % 14.6 % (2.0-8.0); NEUTROPHILS # 2.3 10^3/uL (1.5-8.5); NEUTROPHILS % 41.8 % (36.0-66.0); PLATELET COUNT, AUTOMATED 241 10^3/uL (150-450)
[2025-11-16] MEDS: predniSONE 20 MG TAB PO ONE (02:07)
[2025-11-16] MEDS: IPRATROPIUM 0.5 MG/ALBUTEROL 2.5 MG INH SOL UD 3 ML NEB ONE ×2 (02:10)
[2025-11-16 02:30] VITALS: O2SAT 89
[2025-11-16] MEDS ORDERED: IPRA0.00 NEB (03:12)
[2025-11-16] MEDS ORDERED: PRED20TA PO (03:12)
[2025-11-16 04:45] VITALS: BP 154/75; O2SAT 90
== END 2025-11-16 04:48 | disposition home or self-care (01) ==
LOC: M ED 22:33
DX: J45.901 Unspecified asthma with (acute) exacerbation (principal); K21.9 Gastro-esophageal reflux disease without esophagitis; I10 Essential (primary) hypertension; E03.9 Hypothyroidism, unspecified; J44.9 Chronic obstructive pulmonary disease, unspecified; F41.9 Anxiety disorder, unspecified; Z87.891 Personal history of nicotine dependence; Z88.5 Allergy status to narcotic agent; Z88.6 Allergy status to analgesic agent; Z88.8 Allergy status to other drugs, medicaments and biological substances; Z79.51 Long term (current) use of inhaled steroids; Z79.1 Long term (current) use of non-steroidal anti-inflammatories (NSAID); Z79.2 Long term (current) use of antibiotics; Z79.52 Long term (current) use of systemic steroids; Z79.899 Other long term (current) drug therapy
CPT/HCPCS: 36415; 71046; 80048; 82550; 82553; 83735; 83880; 84484; 85025; 87486; 87581; 87633; 87798; 93005; 94640; 99285; J7512